=== PATIENT | female | born 1970 | race Caucasian/White ===

== ENCOUNTER → 2018-03-16 | Outpatient (CLI) | payer OTHER ==
[2014-02-20 11:30] VITALS: BP 115/74
[~2018-03-16] MED LIST: ACYC800T PO; CYCL10TA2 PO; GABA-585 PO; HYDR-3164 PO; IBUP-1060 PO; RIZA10TA PO; TRAZ-85 PO
--- NOTE | 2018-03-16 16:20 | KCIC ---
Left lower extremity venous doppler ultrasound History: Left calf pain, previous history of DVT Comparison: None Findings: Multiple grayscale, color, and duplex spectral analysis sonographic images were acquired of the left lower extremity veins to evaluate for the presence of DVT. There is normal phasicity. Normal compression, color-flow, and augmentation is demonstrated from the left common femoral to the popliteal veins. There is normal color flow of the proximal profunda femoris vein. There is normal color flow of segments of the calf veins. No discrete sonographic abnormality is demonstrated at site of pain of the left calf. Impression: 1. There is no evidence of deep venous thrombosis from the left common femoral to popliteal veins. Electronically signed by: Wilver Zuleta MD (03/16/2018 4:15 PM) [facility]
== END | disposition home or self-care (01) ==
LOC: KCIC US 15:29
PROVIDERS: ATTEND Nurse Practitioner Family
DX: M79.662 Pain in left lower leg (principal); Z86.718 Personal history of other venous thrombosis and embolism
CPT/HCPCS: 93971

== ENCOUNTER → 2018-07-08 | Outpatient (CLI) | payer OTHER ==
[2014-02-20 11:30] VITALS: BP 115/74
[~2018-07-08] MED LIST changes: +TRAZ-118 PO; -TRAZ-85 PO
--- NOTE | 2018-07-08 09:11 | KCIC ---
MRI Lumbar Spine without contrast History: Lumbar back pain with radiculopathy, numbness in the left foot Technique: Multiplanar, multi sequential noncontrast MR imaging was performed of the lumbar spine. Comparison: None Findings: Lumbar vertebral body stature and AP alignment are preserved. There is advanced degenerative disc disease at L5-S1, associated prominent degenerative endplate change as well as some amorphous edema. There is mild to moderate degenerative disc disease greater posteriorly at L4-5, also mild degenerative endplate change and endplate edema at this level. There is no fluid in the intervertebral disc spaces. Conus terminates at L1-2. There is small hemangioma of the L2 vertebral body. L1-L2: This level was not included on the axial images, spinal canal and neural foramina overall adequate. L2-L3: This level was not included on the axial images, spinal canal and neural foramina overall adequate. L3-L4: Spinal canal and neural foramina are adequate. There is negligible disc osteophyte complex. L4-L5: There is broad posterior protrusion greatest centrally about 2 to 3 mm AP. There is associated annular tear. There is mild indentation upon the ventral thecal sac, minimal narrowing of the far lateral recesses bilaterally. There is minimal buckling of the ligamentum flavum. Neural foramina are overall adequate. There could be a tiny left extraforaminal protrusion near the undersurface of the extraforaminal left L4 nerve root about 2 to 3 mm in greatest dimension. L5-S1: There is disc osteophyte complex with a superimposed broad protrusion also more focal central likely partially contained extrusion with slight extent below the intervertebral disc space. More central component of extrusion measures about 0.7 cm CC by 0.4 cm AP. There is indentation upon the ventral thecal sac somewhat greater in the left lateral recess with contact of the descending left S1 nerve root, mild left lateral recess stenosis. There is also contact of the ventral surface of the descending right S1 nerve root. There is mild narrowing of the left neural foramen by disc osteophyte complex and facet, right neural foramen adequate. There is minimal facet degenerative change. Impression: 1. There is broad protrusion, also likely component of more central small extrusion at the L5-S1 level. There is contact of the descending S1 nerve roots greater on the left, mild left lateral recess stenosis at this level. 2. There is minimal narrowing of the far lateral recesses bilaterally at L4-5. 3. There is advanced degenerative disc disease at L5-S1, mild to moderate degenerative disc disease greater posteriorly at L4-5. There is associated mild endplate edema likely reactive/degenerative in etiology. Electronically signed by: Wilver Zuleta MD (07/08/2018 9:08 AM) [facility]-KCIC[facility]
== END | disposition home or self-care (01) ==
LOC: KCIC MRI 07:31
PROVIDERS: ATTEND Family Medicine
DX: M51.37 Other intervertebral disc degeneration, lumbosacral region (principal); M48.07 Spinal stenosis, lumbosacral region; M51.27 Other intervertebral disc displacement, lumbosacral region; M25.78 Osteophyte, vertebrae
CPT/HCPCS: 72148

== ENCOUNTER → 2020-06-21 | Outpatient (CLI) | payer OTHER ==
[2014-02-20 11:30] VITALS: BP 115/74
[~2020-06-21] MED LIST changes: -ACYC800T PO; +ACYC800T88 PO
--- NOTE | 2020-06-21 16:59 | KCIC ---
Examination: MRI of the right shoulder without contrast HISTORY: History of right shoulder pain, stiffness, decreased range of motion COMPARISON: None TECHNIQUE: Multiplanar, multisequence MR imaging of the right shoulder without contrast. FINDINGS: The long head of the biceps tendon within the bicipital groove. The attachment of the long head the b iceps tendon to the superior labral anchor grossly appears intact. The attachment of the subscapulari s , supraspinatus, infraspinatus tendon grossly appears intact. Mild increased signal identified in the supraspinatus, infraspinatus tendon likely tendinosis. The muscle bulk grossly appears unremarkable. The acromion is type II. Small amount of fluid identified in subacromial subdeltoid bursa. The visua lized labrum grossly appears unremarkable. Moderate degenerative changes acromioclavicular joint. IMPRESSION: 1. Mild rotator cuff tendinosis with minimal amount of fluid identified subacromion /subdeltoid bursa probably bursitis. 2. Moderate degenerative changes acromioclavicular joint. Electronically signed by: Angelito May MD (06/21/2020 4:56 PM) [id number]
== END ==
LOC: KCIC MRI 15:17
PROVIDERS: ATTEND Chiropractor
DX: M19.011 Primary osteoarthritis, right shoulder (principal); M75.101 Unspecified rotator cuff tear or rupture of right shoulder, not specified as traumatic
CPT/HCPCS: 73221

== ENCOUNTER 2021-04-26 20:30 | Emergency (ER) | payer OTHER ==
[~2021-04-26] VITALS: Ht 157.5 cm; Wt 61.6 kg
[~2021-04-26 20:30] MED LIST changes: +CYCL10TA19 PO; -CYCL10TA2 PO
[2021-04-26 23:05] VITALS: BP 171/101
[2021-04-26] MEDS ORDERED: DEXAMETHASONE SOD PHOS 20 MG/5 ML VIAL. IV ONE (23:45)
[2021-04-26] MEDS ORDERED: diphenhydrAMINE HCL 25 MG CAPSULE PO ONE (23:45)
[2021-04-26] MEDS ORDERED: ONDANSETRON PF 4 MG/2 ML VIAL. IVP ONE (23:45)
[2021-04-26] MEDS ORDERED: IV NORMAL SALINE 1000ML BAG 1,000 ML IV ONE (23:45)
--- NOTE | 2021-04-26 23:57 | RAD ---
EXAMINATION: CT head without IV contrast. INDICATION:50 years, Female, headache. COMPARISON: None TECHNIQUE: Spiral acquisition of contiguous images from the skull base to the vertex were obtained. S agittal and coronal 2D reformatted series were provided by the technologist. Soft tissue and bone win cassidy algorithms were reviewed. Exposure: One or more of the following individualized dose reduction techniques were utilized for thi s examination: 1. Automated exposure control 2. Adjustment of the mA and/or kV according to patient size 3. Use of iterative reconstruction technique. FINDINGS: Neither mass, midline shift, intracranial hemorrhage, acute/subacute ischemic changes, nor extraaxial fluid collections are seen. The brain parenchyma is normal in appearance. The ventricles are normal in size. The paranasal sinuses, mastoid air cells, and middle ears are clear.The orbital contents appear withi n normal limits. IMPRESSION: No evidence of acute intracranial abnormality. Electronically signed by: Magdiel Woodson MD (04/26/2021 11:55 PM) [facility]
--- NOTE | 2021-04-27 00:19 | PHYS DOC ---
Past Medical History Past Medical History: Migraines Additional Past Medical Histor: arm pain, neck pain (DAISY LOPEZ ENGINEERING SCIENTIST) Past Surgical History: No Surgical History Additional Past Surgical Histo: bladder suspension, neck (DAISY LOPEZ ENGINEERING SCIENTIST) Smoking Status: Never Smoker Alcohol Use: None Drug Use: None (DAISY LOPEZ ENGINEERING SCIENTIST) General Adult EDM: Chief Complaint: HEADACHE HPI: HPI: Patient is a 50 year old female with a history of migraine headaches presenting today complaining of 4 out of 10 right temporal headache, symptoms began prior to coming to the ED while she was at a social function. Patient states the headache "suddenly came on" she states she typically gets a warning before her migraine headaches but this one did not give her a warning. Denies being a thunderclap headache. Reports an episode of nausea and vomiting. Denies this being the worst headache in her life but states it is different. Denies any fever, neck pain, chest pain or shortness of breath. She states she took Maxalt and hydrocodone she has been taking for her shoulder with some relief. Denies anything making her headache worse but states she feels guilty right now because the pain has gone down significantly and wish she had never come to the ED (DAISY LOPEZ ENGINEERING SCIENTIST) Review of Systems: Review of Systems: Constitutional: Denies fever or chills. [] Eyes: Denies change in visual acuity. [] HENT: Denies nasal congestion or sore throat. [] Respiratory: Denies cough or shortness of breath. [] Cardiovascular: Denies chest pain or edema. [] GI: Reports nausea and vomiting denies abdominal pain, bloody stools or diarrhea. [] : Denies dysuria. [] Musculoskeletal: Denies back pain or joint pain. [] Integument: Denies rash. [] Neurologic: Reports headache, denies focal weakness or sensory changes. [] Psychiatric: Denies depression or anxiety. [] (DAISY LOPEZ ENGINEERING SCIENTIST) Heart Score: C/O Chest Pain: N/A Risk Factors: Risk Factors: DM, Current or recent (<one month) smoker, HTN, HLP, family history of CAD, obesity. Risk Scores: Score 0 - 3: 2.5% MACE over next 6 weeks - Discharge Home Score 4 - 6: 20.3% MACE over next 6 weeks - Admit for Clinical Observation Score 7 - 10: 72.7% MACE over next 6 weeks - Early Invasive Strategies (DAISY LOPEZ ENGINEERING SCIENTIST) Current Medications: Current Medications Medications (Trade) Dose Ordered Sig/Shana Start Time Stop Time Status Last Admin Dose Admin Dexamethasone Sodium Phosphate (Decadron) 10 mg 1X ONCE 04/26/21 23:45 04/26/21 23:46 DC 04/27/21 00:03 10 MG Diphenhydramine HCl (Benadryl) 25 mg 1X ONCE 04/26/21 23:45 04/26/21 23:46 DC 04/27/21 00:04 25 MG Ondansetron HCl (Zofran) 4 mg 1X ONCE 04/26/21 23:45 04/26/21 23:46 DC 04/27/21 00:03 4 MG Sodium Chloride 1,000 ml @ 1,000 mls/hr 1X ONCE 04/26/21 23:45 04/27/21 00:44 04/27/21 00:02 1,000 MLS/HR (DAISY LOPEZ ENGINEERING SCIENTIST) Allergies: Allergies: Allergies Coded Allergies Type Severity Reaction Last Updated Verified Sulfa (Sulfonamide Antibiotics) Allergy Intermediate 04/26/21 Yes latex Allergy Intermediate itch 04/26/21 Yes (DAISY LOPEZ ENGINEERING SCIENTIST) Physical Exam: PE: Constitutional: Well developed, well nourished, no acute distress, non-toxic appearance. [] HENT: Normocephalic, atraumatic, bilateral external ears normal, oropharynx moist, no oral exudates, nose normal. [] Eyes: PERRLA, EOMI, conjunctiva normal, no discharge. [] Neck: Normal range of motion, no tenderness, supple, no stridor. [] Cardiovascular:Heart rate regular rhythm, no murmur [] Lungs & Thorax: Bilateral breath sounds clear to auscultation [] Abdomen: Bowel sounds normal, soft, no tenderness, no masses, no pulsatile masses. [] Skin: Warm, dry, no erythema, no rash. [] Back: No tenderness, no CVA tenderness. [] Extremities: No tenderness, no cyanosis, no clubbing, ROM intact, no edema. [] Neurologic: Alert and oriented X 3, normal motor function, normal sensory function, no focal deficits noted. Cranial nerves II through XII intact Psychologic: Affect normal, judgement normal, mood normal. [] (DAISY LOPEZ ENGINEERING SCIENTIST) Current Patient Data: Vital Signs: Vital Signs Date Time Temp Pulse Resp B/P (MAP) Pulse Ox O2 Delivery O2 Flow Rate FiO2 04/26/21 23:05 98.2 89 18 171/101 (124) 100 Room Air 98.2 (DAISY LOPEZ ENGINEERING SCIENTIST) EKG: EKG: [] (DAISY LOPEZ ENGINEERING SCIENTIST) Radiology/Procedures: Radiology/Procedures: []PROCEDURE: CT HEAD WO CONTRAST EXAMINATION: CT head without IV contrast. INDICATION:50 years, Female, headache. COMPARISON: None TECHNIQUE: Spiral acquisition of contiguous images from the skull base to the vertex were obtained. Sagittal and coronal 2D reformatted series were provided by the technologist. Soft tissue and bone window algorithms were reviewed. Exposure: One or more of the following individualized dose reduction techniques were utilized for this examination: 1. Automated exposure control 2. Adjustment of the mA and/or kV according to patient size 3. Use of iterative reconstruction technique. FINDINGS: Neither mass, midline shift, intracranial hemorrhage, acute/subacute ischemic changes, nor extraaxial fluid collections are seen. The brain parenchyma is normal in appearance. The ventricles are normal in size. The paranasal sinuses, mastoid air cells, and middle ears are clear.The orbital contents appear within normal limits. IMPRESSION: No evidence of acute intracranial abnormality. Electronically signed by: Abad Woodson MD (04/26/2021 11:55 PM) [facility] DICTATED and SIGNED BY: ABAD WOODSON MD DATE: 04/26/21 [id number] (DAISY LOPEZ ENGINEERING SCIENTIST) Course & Med Decision Making: Course & Med Decision Making Pertinent Labs and Imaging studies reviewed. (See chart for details) This is a 50-year-old female patient presented to the ED today complaining of a headache that began today. Also reports nausea and vomiting x1. History of migraine headache but states this one is different. Vitals on arrival to the ED temperature 98.2, heart rate 89, blood pressure 171/101, blood pressure came down to 120s over 70s CT of the head is negative for any acute findings. Patient given a liter of fluid, Decadron, Benadryl and Zofran, feeling better. Discharge to home (DAISY LOPEZ APRN) Course & Med Decision Making Patients Care and treatment plan provided by ER Nurse Practitioner. I was available for consult. Patient's chart reviewed. (BALJINDER MANZANARES DO) Debbie Disclaimer: Debbie Disclaimer: This electronic medical record was generated, in whole or in part, using a voice recognition dictation system. (DAISY LOPEZ APRN) Departure Departure Impression: Primary Impression: Migraine headache Qualified Codes: G43.009 - Migraine without aura, not intractable, without status migrainosus Disposition: HOME / SELF CARE / HOMELESS Condition: STABLE Referrals: REENA ORANTES MD (PCP) Follow-up next week Patient Instructions: Migraine Headache Additional Instructions: You were seen for a migraine headache. Your CT of the head is negative for any acute findings. Please take your Maxalt as needed for migraine headaches. Take Zofran for nausea or vomiting. Rest, follow-up with your doctor next week DAISY LOPEZ APRN Apr 27, 2021 00:19 BALJINDER MANZANARES DO Apr 27, 2021 18:46
== END 2021-04-27 01:00 | disposition home or self-care (01) ==
LOC: ER 20:30
DX: G43.909 Migraine, unspecified, not intractable, without status migrainosus (principal); Z88.2 Allergy status to sulfonamides; Z91.040 Latex allergy status
CPT/HCPCS: 70450; 96361; 96374; 96375; 99284; J1100; J2405; J7030; Q0163